=== PATIENT | male | born 1990 | race Caucasian/White ===

== ENCOUNTER → 2021-03-19 16:13 | Outpatient (BNVA) | payer OTHER, SELFPAY | PROVIDERS: Family Provider Psychiatry & Neurology Psychiatry; Visit Provider Nurse Practitioner Family | DX: Z20.822 Contact with and (suspected) exposure to COVID-19 (principal); J06.9 Acute upper respiratory infection, unspecified | CPT/HCPCS: 87635 ==

== ENCOUNTER 2024-04-18 16:59 | Emergency (ER) | payer BC, MEDICAID, SELFPAY ==
[2024-04-18 17:01] VITALS: BP 126/74; PULSE 70; RESP 75; TEMP 36.4; O2SAT 93; BMI 27.2
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
[2024-04-18 17:19] VITALS: BP 134/81; PULSE 77; O2SAT 94
[2024-04-18 17:57] LABS: Basophils % 0.4 %; Eosinophils # 0.2 10^3/uL (0.0-0.8); Eosinophils % 2.7 %; Hematocrit 51.8 % (37-53); Lymphocytes # 4.1 10^3/uL (0.8-4.8); Lymphocytes % 50.9 %; Mean Corpuscular HGB Conc 32.6 g/dL (30-55); Mean Corpuscular Hemoglobin 26.7 pg (27-33); Monocytes # 0.3 10^3/uL (0.2-0.9); Monocytes % 3.8 %; Neutrophils # 3.41 10^3/uL (1.8-7.7); Nucleated Red Blood Cells % 0 %; Platelet Count 310 10^3/cmm (157-399); Red Blood Count 6.32 10^6/uL (3.85-5.65); Red Cell Distribution Width 14.8 % (12.1-15.1); White Blood Count 8.12 10^3/uL (3.29-11.43)
[2024-04-18 18:08] LABS: Alanine Aminotransferase 28 U/L (0-41); Alcohol Level 187 mg/dL (0-10); Alkaline Phosphatase 123 U/L (40-130); Aspartate Amino Transferase 22 U/L (0-40); Blood Urea Nitrogen 16 mg/dL (6-20); Calcium 9.3 mg/dL (8.5-10.5); Carbon Dioxide 26 mmol/L (22-29); Chloride 103 mmol/L (98-107); Creatinine Clr Calc Pharmacy 146.7623; Globulin 3.4 g/dL (1.3-4.6); Glucose 108 mg/dL (65-115); Osmolality Calculated 298 mOsm/kg (285-295); Sodium 143 mmol/L (136-145); Total Bilirubin 0.2 mg/dL (0.15-1.2); Total Protein 8.4 g/dL (6.6-8.7)
[2024-04-18 18:09] LABS: Lactic Sepsis W/Reflex 1.6 mmol/L (0.5-2.2)
[2024-04-18] MEDS: iohexol 350 mg/mL 500 mL Btl (per mL) IV (18:35)
[2024-04-18 19:14] VITALS: BP 111/80; PULSE 76; O2SAT 96
[2024-04-18 19:21] VITALS: BP 133/72; PULSE 78; O2SAT 98
== END 2024-04-18 19:22 | disposition home or self-care (01) ==
PROVIDERS: Emergency Provider Emergency Medicine
DX: S01.81XA Laceration without foreign body of other part of head, initial encounter (principal); S30.811A Abrasion of abdominal wall, initial encounter; S70.211A Abrasion, right hip, initial encounter; S20.311A Abrasion of right front wall of thorax, initial encounter; S40.812A Abrasion of left upper arm, initial encounter; S40.811A Abrasion of right upper arm, initial encounter; V29.99XA Rider (driver) (passenger) of other motorcycle injured in unspecified traffic accident, initial encounter; Z72.0 Tobacco use; F10.129 Alcohol abuse with intoxication, unspecified; Y90.6 Blood alcohol level of 120-199 mg/100 ml; E27.8 Other specified disorders of adrenal gland
CPT/HCPCS: 70450; 70486; 71260; 72125; 74177; 80053; 80307; 83605; 85025; 99285